=== PATIENT | female | born 1930 | race Caucasian/White ===

== ENCOUNTER 2017-01-06 11:31 | Emergency (ER) | payer MEDICARE, OTHER ==
[2017-01-06] MEDS ORDERED: CLINDAMYCIN 300 MG/D5W RTU 300 MG/50 ML RTUPB IV ONE (12:14)
[2017-01-06] MEDS ORDERED: MORPHINE SULFATE 10 MG/ML INJ IV ONE ×2 (12:14→15:22)
[2017-01-06 12:48] LABS: ABSOLUTE LYMPHOCYTES (AUTO) 1.1 10^3/uL (0.5-4.7); ABSOLUTE MONOCYTES (AUTO) 0.8 10^3/uL (0.1-1.4); ABSOLUTE NEUT (AUTO) 12.1 10^3/uL (1.7-8.2); BASOPHILS % (AUTO) 0.3 % (0-2); EOSINOPHILS % (AUTO) 0.1 % (0-6); HEMOGLOBIN 13.8 g/dL (12.0-15.5); HGB HCT DIFFERENCE 1.4; LYMPHOCYTES % (AUTO) 8.2 % (13-45); MEAN CORPUSCULAR HEMOGLOBIN 32.8 pg (27.0-33.4); MEAN CORPUSCULAR HGB CONC 34.5 g/dL (32.0-36.0); MEAN CORPUSCULAR VOLUME 95 fl (80-97); MONOCYTES % (AUTO) 5.4 % (3-13); RED BLOOD COUNT 4.21 10^6/uL (3.72-5.28); RED CELL DISTRIBUTION WIDTH 14.4 % (11.5-14.0)
[2017-01-06 13:06] LABS: ALANINE AMINOTRANSFERASE 40 U/L (9-52); ALBUMIN 3.7 g/dL (3.5-5.0); ALKALINE PHOSPHATASE 123 U/L (38-126); ANION GAP 13 (5-19); ASPARTATE AMINO TRANSFERASE 29 U/L (14-36); BILIRUBIN,DIRECT 0.5 mg/dL (0.0-0.4); BILIRUBIN,TOTAL 1.2 mg/dL (0.2-1.3); BLOOD UREA NITROGEN 17 mg/dL (7-20); CALCIUM 9.7 mg/dL (8.4-10.2); CARBON DIOXIDE 25 mmol/L (22-30); CHLORIDE 104 mmol/L (98-107); CREATININE RESULT 0.59 mg/dL (0.52-1.25); GLUCOSE 124 mg/dL (75-110); POTASSIUM 4.7 mmol/L (3.6-5.0); SODIUM 142.1 mmol/L (137-145); TOTAL PROTEIN 6.9 g/dL (6.3-8.2)
--- NOTE | 2017-01-06 13:46 | ER Document Report ---
ED General - General Chief Complaint: Mouth Problem Stated Complaint: DIFFICULTY SWALLOWING Time Seen by Provider: 01/06/17 11:45 Mode of Arrival: Ambulatory Information source: Patient, Relative Notes: 86-year-old female history of atrial fibrillation, on Pradaxa presents with complaints of facial pain worsened over the past week. pt notes she had a tooth pulled TRAVEL OUTSIDE OF THE [place] IN LAST 30 DAYS: No - Related Data Allergies/Adverse Reactions: epinephrine Adverse Reaction (Verified 01/06/17 15:11) Past Medical History - Social History Smoking Status: Never Smoker Cigarette use (# per day): No Chew tobacco use (# tins/day): No Smoking Education Provided: No Family History: Reviewed & Not Pertinent Renal/ Medical History: Denies: Hx Peritoneal Dialysis Physical Exam - Vital signs Vitals: Temp Pulse Resp BP Pulse Ox 99.4 F 76 20 131/70 H 96 01/06/17 11:40 01/06/17 11:40 01/06/17 11:40 01/06/17 11:40 01/06/17 11:40 Course - Re-evaluation Re-evalutation: 01/06/17 13:46 Dr Lee called after I spoke with radiologist regarding findings 01/06/17 14:29 Dr Lee requests transfer , [facility] paged 01/06/17 14:34 Dr Tolbert states he has no increased capabilities than we do 01/06/17 14:44 [facility] paged 01/06/17 15:25 [facility] paged again 01/06/17 15:36 Dr Monae hospitalist will accept the patient Patient's airway is stable at this time, I have requested a PICU bed I do not believe the patient meets criteria for ICU at this time, I have requested rapid transport to their facility as this may worsen at any time - Vital Signs Vital signs: Temp Pulse Resp BP Pulse Ox 99.4 F 76 20 131/70 H 96 01/06/17 11:40 01/06/17 11:40 01/06/17 11:40 01/06/17 11:40 01/06/17 11:40 - Laboratory Result Diagrams: 01/06/17 12:20 01/06/17 12:20 Laboratory results interpreted by me: 01/06/17 01/06/17 12:20 12:20 WBC 14.0 H RDW 14.4 H Seg Neutrophils % 86.0 H Lymphocytes % 8.2 L Absolute Neutrophils 12.1 H Glucose 124 H Direct Bilirubin 0.5 H - Diagnostic Test Radiology reviewed: Image reviewed, Reports reviewed - Report given to patient and family members Critical Care Note - Critical Care Note Total time excluding time spent on procedures (mins): 45 Comments: 45 minutes of critical care time spent in direct contact evaluating and reevaluating the patient, treating symptoms, reviewing labs and studies and speaking with family and consultants excluding any procedures Discharge - Discharge Clinical Impression: Brian's angina syndrome Condition: Stable Disposition: [facility] Referrals: DOROTHY ADKINS PA [Primary Care Provider] - Follow up as needed
--- NOTE | 2017-01-06 13:54 | RADIOLOGY REPORT (SQ) ---
EXAM DESCRIPTION: CT FACIAL AREA WITH COMPLETED DATE/TIME: 01/06/2017 1:27 pm REASON FOR STUDY: concerning for ludwigs angina COMPARISON: None. TECHNIQUE: Post contrast images through the facial bones and orbits windowed for bone and soft tissu e. Additional coronal and sagittal reconstructed images reviewed. All images stored on PACS. All CT scanners at this facility use dose modulation, iterative reconstruction, and/or weight based d osing when appropriate to reduce radiation dose to as low as reasonably achievable (ALARA). [facility]: Dose Right [facility]: CareDose [facility]: Dose Right [facility]: Teradose 4D [facility]: SVAS Biosana CONTRAST TYPE AND DOSE: contrast/concentration: Isovue 370.00 mg/ml; Total Contrast Delivered: 75.0 ml; Total Saline Delivered: 55.0 ml RENAL FUNCTION: Not available RADIATION DOSE: Up-to-date CT equipment and radiation dose reduction techniques were employed. CTDIv ol: 30.4 mGy. DLP: 699 mGy-cm. . LIMITATIONS: None. FINDINGS: FACIAL BONES: No fracture or bone lesion. ORBITS: Intact. No fracture. Symmetric intact globes and retroorbital soft tissues. PARANASAL SINUSES: Clear. No significant mucosal thickening, mass or fluid. No nasal polyps. Maxilla ry sinus outlets are patent. SOFT TISSUES: There is a somewhat lobulated relative low density area in the soft tissues at the leve l of the base of the tongue and submandibular musculature on the left measuring 11.2 x 41.6 mm in laura meters. There is rim enhancement. The appearance is consistent with an abscess collection. INFERIOR BRAIN: Limited view. No acute findings. OTHER: No other significant finding. IMPRESSION: Lobulated relative low density area with rim enhancement the level of the base of the to ngue and submandibular musculature on the left as noted above consistent with an abscess collection. Clinical correlation is recommended. Other findings as noted above TECHNICAL DOCUMENTATION: JOB ID: [id number] Quality ID # [id number]: Final reports with documentation of one or more dose reduction techniques (e.g., Au tomated exposure control, adjustment of the mA and/or kV according to patient size, use of iterative reconstruction technique) 2010 [employer]- All Rights Reserved
[2017-01-06 18:04] VITALS: BP 108/84
== END 2017-01-06 17:30 | disposition short-term general hospital (02) ==
LOC: ER 11:31
DX: K12.2 Cellulitis and abscess of mouth (principal); R51 Headache; K08.89 Other specified disorders of teeth and supporting structures; R13.10 Dysphagia, unspecified; I48.91 Unspecified atrial fibrillation; Z79.899 Other long term (current) drug therapy
CPT/HCPCS: 96376; 99291; 96375; 96365; 36415; 85025; 80053; 70487; J3490; J2270